=== PATIENT | male | born 1960 | race American Indian/Alaskan Native ===

== ENCOUNTER 2018-12-29 08:42 | Outpatient (CLI) | payer OTHER ==
[2018-12-29] MEDS ORDERED: PROVENTIL IH ONE (09:36)
== END 2018-12-29 08:43 | disposition home or self-care (01) ==
LOC: PF 08:42
PROVIDERS: ATTEND Internal Medicine
DX: D86.9 Sarcoidosis, unspecified (principal); J44.9 Chronic obstructive pulmonary disease, unspecified; E11.9 Type 2 diabetes mellitus without complications
CPT/HCPCS: 94060; 94640; 94729